=== PATIENT | male | born 1995 | race Caucasian/White ===

== ENCOUNTER 2017-08-13 20:46 | Emergency (ER) | payer OTHER ==
[2017-08-13] MEDS: IBUPROFEN 600 MG TAB PO (22:27)
== END 2017-08-13 22:56 | disposition home or self-care (01) ==
LOC: M ED 20:46
DX: S40.012A Contusion of left shoulder, initial encounter (principal); W00.0XXA Fall on same level due to ice and snow, initial encounter; Y92.410 Unspecified street and highway as the place of occurrence of the external cause; F17.210 Nicotine dependence, cigarettes, uncomplicated
CPT/HCPCS: 73030